=== PATIENT | male | born 1970 | race Caucasian/White ===

== ENCOUNTER → 2019-06-04 | Outpatient (CLI) | payer BC, OTHER ==
--- NOTE | 2019-06-07 08:27 | MRI ---
Study: MRI of the Right Hip. Indication: PAIN IN RIGHT HIP Technique: Multiplanar, multi sequence MRI of the right hip was obtained without intravenous contrast. Comparison: None. Findings: No acute fracture or osteonecrosis of the right hip. High-grade tearing and truncation throughout the anterior superior right hip labrum. There is loss of normal sphericity anterior superior margin of the femoral head neck junction. Mixed grade 2 and 3 chondral thinning throughout the right hip joint. No full-thickness chondral defect. Tiny joint effusion. Tendinosis bilateral gluteus minimus/medius tendon insertions with mild bilateral greater trochanter bursal edema. Lower lumbar disc disease. Mild pubic symphysis osteoarthritis. No high-grade pelvic tendon tear. Impression: Mild right hip osteoarthritis with associated anterior superior labral tearing and a tiny joint effusion. No acute fracture or osteonecrosis. Additional findings as above. Electronically signed by: Brendon Stern MD 06/07/2019 8:26 AM [facility]
== END ==
LOC: MRI 14:00
PROVIDERS: ATTEND Family Medicine
DX: M16.11 Unilateral primary osteoarthritis, right hip (principal)

== ENCOUNTER → 2019-07-02 | Outpatient (CLI) | payer OTHER ==
--- NOTE | 2019-07-02 15:20 | MRI ---
EXAM DESCRIPTION: MRI left shoulder CLINICAL HISTORY: Left shoulder pain COMPARISON: None. TECHNIQUE: Multiplanar, multisequence MR images of the left shoulder FINDINGS: Calcium deposition in the distal supraspinatus tendon insertion along the mid to posterior tendon measuring 9 x 6 x 6 mm. Diffuse intratendinous increased signal on PD and T2 images from the critical zone to the insertion with bursal surface fraying and edema. Normal muscle volume and signal Mild infraspinatus tendinosis, increased signal on PD and T2-weighted images. No tear. Normal muscle volume and signal. Teres minor tendon and muscle are normal. Mild insertional subscapularis tendinosis. Normal muscle volume and signal Long head biceps tendon normal in the bicipital groove and intra-articular. Intralabral intermediate PD and T2 signal along the base of the anchor. No anchor detachment. No labral detachment. No high-grade glenohumeral chondrosis or chronic osteochondral lesion. Minimal joint effusion with septated fluid in the subcoracoid recess. No intra-articular loose body Moderate acromioclavicular osteoarthritis. Mild anterior lateral downsloping of the acromion with small acromial spur IMPRESSION: Supraspinatus calcific tendinitis with dystrophic insertional calcification. Contiguous bursal surface fraying and edema Electronically signed by: Vlad Tyler MD 07/02/2019 3:18 PM [facility]
== END ==
LOC: MRI 14:00
PROVIDERS: ATTEND Family Medicine
DX: M75.32 Calcific tendinitis of left shoulder (principal); R60.0 Localized edema

== ENCOUNTER → 2019-07-08 | Outpatient (CLI) | payer OTHER ==
--- NOTE | 2019-07-08 14:42 | MRI ---
EXAM DESCRIPTION: Cervical Spine: MRI. CLINICAL HISTORY: 48 years Male NECK PAIN. Left upper extremity radiculopathy elbow and forearm. COMPARISON: MRI scan left shoulder without contrast July 02. TECHNIQUE: Multiplanar, high-field MRI, multiple sequences, non-contrast Cervical spine. FINDINGS: C3-C4: Small uncinate spur on the right narrowing the right neural foramen. No stenosis. Disc unremarkable. Canal and left neural foramina are patent. Facets are negative. C5-C6: Moderate disc space loss with disc desiccation. Small posterior remnant of disc with spurs encroaching on the ventral extradural sac but not the cord. Trace retrolisthesis. Uncinate spur with moderate to severe right neural foraminal narrowing. Small uncinate spur on the left with mild neural foraminal narrowing. Mild canal narrowing with posterior ligament thickening. C6-C7: Disc desiccation posterior midline bulge not touching the cord. Posterior ligament thickening. Mild to moderate canal narrowing. Trace retrolisthesis. Left uncinate spur and disc bulge resulting in moderate neural foraminal narrowing. Mild canal and right neural foraminal narrowing. Facets are unremarkable. C7-T1: Minimal disc desiccation posterior midline bulge encroaching on the extradural space but not the cord. Canal and bilateral neural foramina facets are negative. T1-T2: Posterior midline disc bulge and possible extrusion above the disc space effacing the ventral extradural space but not touching the cord. Mild to moderate canal narrowing. Bilateral neural foramina patent. Posterior midline bulge of the T2-3 and T3-4 discs abutting the cord with the T2-3 disc also bulging into the left neural foramen, abutting the left T2 nerve. Normal signal in the remaining discs with no bulging. Disc spaces preserved. Canal and neural foramina are patent. Facet joints negative. Spinal alignment kyphosis C4-C6. No cord compression or cord edema. Atlantoaxial joint minimal arthrosis with fluid abutting the joint space.. Base of the cerebellar tonsils is at the level of the foramen magnum. Paravertebral soft tissues are unremarkable. Vertebral bodies are not compressed at any level. Normal marrow signal in the remaining vertebral bodies and the posterior elements. IMPRESSION: 1. Posterior midline left paracentral bulge of the C6-C7 disc also bulging into the left foramen. Moderate narrowing of the neural foramen. Abutting the left C7 nerve in the left lateral canal. Moderate canal narrowing to the left of midline. 2. Moderate spondylosis at C5-C6 with posterior broad-based disc osteophyte bulge encroaching on the extradural space but not the cord. Multifactorial moderate to severe right neural foraminal narrowing. Disc and osteophyte are abutting the right C6 nerve. 3. T1-T2 disc seen on sagittal sequences only may be protruding into the ventral canal and extruding in the midline posterior to the T1 vertebral body. Moderate canal narrowing. Neural foramina are patent. 4. Posterior midline T2-3 and T3-4 disc bulges with T2-3 disc also bulging into the left neural foramen, abutting the left T2 nerve. Electronically signed by: Rashid Verdugo MD 07/08/2019 2:41 PM [facility]
== END ==
LOC: MRI 12:25
PROVIDERS: ATTEND Family Medicine
DX: M50.123 Cervical disc disorder at C6-C7 level with radiculopathy (principal); M47.22 Other spondylosis with radiculopathy, cervical region; M25.78 Osteophyte, vertebrae; M51.14 Intervertebral disc disorders with radiculopathy, thoracic region

== ENCOUNTER → 2019-07-09 | Outpatient (CLI) | payer OTHER ==
--- NOTE | 2019-07-12 09:14 | MRI ---
EXAM DESCRIPTION: Thoracic Spine w/o Contrast: Magnetic Resonance Imaging. CLINICAL HISTORY: PAIN IN THORACIC SPINE COMPARISON: MRI cervical spine July 08 and MRI left shoulder July 02. TECHNIQUE: Multiplanar, multiple standard sequences, non contrast MRI, thoracic spine. FINDINGS: T1-T2: Disc desiccation with disc space preserved. Posterior small 3 mm herniation with superior extrusion almost to the C7-T1 disc space. Mild canal narrowing. Bilateral disc bulge into the foramina with bilateral narrowing. Bilateral mild facet arthrosis. T2-T3 and T3-T4 disc desiccation and disc bulging in the midline abutting the cord. Bulging at both levels also into the base of the right foramen at both levels. T3-4 disc is impressing on the ventral cord and abutting the right T3 nerve. T2-T3 disc also bulges into the base of the left foramen. Moderate canal narrowing at both levels. Facets are unremarkable. T4-T5 disc desiccation and minimal disc space loss: Disc bulging in the midline and contacting the ventral cord. Moderate canal narrowing. T5-T6 disc space decreased with desiccated disc. Anterior endplate spurs. Posterior disc bulge contacting the cord with moderate canal narrowing. Foramina at both levels are patent with no facet arthrosis. T6-T7: Moderate loss of disc space with old endplate Schmorl's nodes superior and inferior. Disc remnant bulging in the midline contacting the cord. T7-T8: Moderate disc space loss with desiccated disc signal. Old Schmorl's nodes superior and inferior endplate. Posterior disc bulge abutting the cord. No significant foraminal narrowing or facet arthrosis at either level. T8-T9 and T9-T10 disc with moderate disc space loss and disc desiccated signal with superior and inferior old Schmorl's nodes at both levels. More bulge at T8-T9 which is contacting the cord. Anterior bulge and endplate ridging at both levels. Foramina are patent with no significant facet arthrosis. T10-T11 and T11-T12 discs are desiccated with T10-T11 disc space narrowed. Inferior T10 endplate Schmorl's nodes posteriorly with minimal disc bulging but not touching the cord. Anterior disc bulging with endplate ridging. T11-T12 disc with minimal desiccation anterior bulging and endplate ridging. Posterior left paracentral 5 mm disc herniation impressing on the cord and minimal extrusion above the disc space. Left paracentral moderate canal narrowing. Disc also bulging into the left foramen which is narrowed and abutting the left T11 nerve. Other foramina are patent and facet joints unremarkable at both levels. T12-L1: Disc desiccation with minimal common cavities in the superior and inferior endplates and narrowing posterior. Minimal degenerative hypertrophy of the left facet and posterior ligament. Minimal narrowing of the right foramen. Conus terminates near this level. Remaining discs with normal signal and disc spaces are preserved. Canal and foramina are patent. No scoliosis.Facet joints are unremarkable. Conus terminates near T12-L1.. Cord with normal signal, no compression. Paravertebral soft tissues are unremarkable. Normal marrow signal in the remaining vertebral bodies and the posterior elements. Vertebral bodies are not compressed at any level. IMPRESSION: 1. Multiple levels of disc desiccation and disc bulging and endplate Schmorl's nodes involving the disc spaces in the endplates of the lower half of the spine. No canal or foraminal stenosis at any level. No compression type vertebral body fractures. 2. Small posterior midline herniation T1-T2 disc with superior extrusion abutting the anterior canal. No canal or foraminal stenosis. 3. T3-4 disc bulging impressing on the ventral cord abutting the right T3 nerve moderate canal narrowing. T2-3 disc bulges into the canal and both foramina. 4. Discs from T4-T5 to T8-T9 bulging into the canal and abutting or contacting the cord. 5. T11-T12 posterior left paracentral 5 mm disc herniation impressing on the cord with minimal extrusion above the disc space. Also abutting the exiting left T11 nerve. Electronically signed by: Rashid Verdugo MD 07/12/2019 9:13 AM [facility]
== END ==
LOC: MRI 14:41
PROVIDERS: ATTEND Family Medicine
DX: M51.34 Other intervertebral disc degeneration, thoracic region (principal); M51.24 Other intervertebral disc displacement, thoracic region; M51.84 Other intervertebral disc disorders, thoracic region; M51.44 Schmorl's nodes, thoracic region

== ENCOUNTER → 2019-11-06 | Outpatient (CLI) | payer BC | LOC: LAB.O 11:55 | PROVIDERS: ATTEND Family Medicine | DX: A64 Unspecified sexually transmitted disease (principal); W46.0XXA Contact with hypodermic needle, initial encounter ==